=== PATIENT | female | born 1935 | race Caucasian/White ===

== ENCOUNTER 2019-10-09 09:37 | Day surgery (SDC) | payer OTHER ==
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
[2019-10-09] MEDS ORDERED: Ringers Lactate 1,000 ML IV ONE (10:07)
[2019-10-09] MEDS ORDERED: propofoL 200 MG/20 ML VIAL IV ONE ×2 (12:32→13:12)
[2019-10-09] MEDS ORDERED: GLYCOPYRROLATE 0.2 MG/ML SYR ONE (12:32)
[2019-10-09] MEDS ORDERED: LIDOCAINE 2% MPF 5 ML VIAL ONE (12:32)
[2019-10-09] MEDS ORDERED: EPINEPHRINE/PF 1 MG/ML AMP ONE (12:45)
[2019-10-09 13:58] VITALS: TEMP 96.3
[2019-10-09 14:00] VITALS: BP 131/62; O2SAT 96
--- NOTE | 2019-10-10 01:11 | OP ---
Surgeon: Gio Montes MD Procedure To Be Performed: Colonoscopy. Indication For Procedure: Abdominal pain, diarrhea, history of polyps, and history of colon cancer. Plan For Anesthesia: Monitored anesthesia care. Complexity: High due to patient's comorbidities. Technique: After obtaining informed consent from the patient explaining risks and complications, the patient was placed in the left lateral position and sedation was given. Digital rectal exam was per formed. The scope was inserted into the rectum and carefully guided up until the cecum. The cecum w as identified by the ileocecal valve and appendiceal orifice. Subsequently, scope gradually withdraw n while carefully examining the mucosa. Scope withdrawal time was 15 minutes. After the completion of examination, scope and equipment were withdrawn and procedure terminated in a safe manner. Findings: At the hepatic flexure, a flat 6 mm polyp was seen, this was removed with hot biopsy, poly pectomy. In the transverse colon, 3 flat polyps ranging from 6-7 mm were seen. These were removed b y hot biopsy, polypectomy. At the splenic flexure, a 4 mm flat polyp was seen, this was removed with hot biopsy polypectomy. In the sigmoid and descending colon, multiple small diverticula were seen. In the mid rectum, there was evidence of colo-colonic anastomosis. It appeared normal. In the dist al rectum near the anal verge, a 1.5 cm flat polyp was seen. This was injected with saline for lift and completely excised with snare polypectomy. Internal hemorrhoids were seen in the rectum. Complications: None. Tolerance To Anesthesia: Excellent. Postoperative Diagnoses: Multiple polyps post partial colectomy, diverticulosis. Plan: 1.Await pathology results. 2.Follow up in the GI clinic in 2 weeks. 3.I also had taken random biopsies to check for microscopic colitis, which we will also evaluate for on followup. Also recommended to hold Plavix for additional 4 days due to the polypectomies. US/MODL Voice ID: [id number] Report ID: [id number]
== END 2019-10-09 14:25 | disposition home or self-care (01) ==
LOC: OR 09:37
PROVIDERS: ATTEND Internal Medicine Gastroenterology
PROC: 0DBP8ZX Excision of Rectum, Via Natural or Artificial Opening Endoscopic, Diagnostic (ICD-10-PCS; 2019-10-09)
PROC: 3E0H8GC Introduction of Other Therapeutic Substance into Lower GI, Via Natural or Artificial Opening Endoscopic (ICD-10-PCS; 2019-10-09)
PROC: 0DBL8ZX Excision of Transverse Colon, Via Natural or Artificial Opening Endoscopic, Diagnostic (ICD-10-PCS; principal; 2019-10-09 12:30)
DX: K63.5 Polyp of colon (principal); D12.3 Benign neoplasm of transverse colon; D12.8 Benign neoplasm of rectum; K57.30 Diverticulosis of large intestine without perforation or abscess without bleeding; K64.8 Other hemorrhoids; K86.1 Other chronic pancreatitis; I10 Essential (primary) hypertension; E78.00 Pure hypercholesterolemia, unspecified; Z85.038 Personal history of other malignant neoplasm of large intestine; Z86.010 Personal history of colon polyps; Z90.49 Acquired absence of other specified parts of digestive tract; Z88.1 Allergy status to other antibiotic agents; Z88.3 Allergy status to other anti-infective agents
CPT/HCPCS: 88305; 45384; 45385; 45381; J2704 ×2; J7120; J0171